=== PATIENT | female | born 1965 | race Caucasian/White ===

== ENCOUNTER → 2020-03-20 11:27 | Outpatient (BNVA) | payer MEDICAID, SELFPAY | PROVIDERS: Visit Provider Specialist | DX: H46.9 Unspecified optic neuritis (principal); Z87.891 Personal history of nicotine dependence | CPT/HCPCS: 99204; 99205 ==

== ENCOUNTER → 2020-10-24 10:58 | Outpatient (BNVA) | payer MEDICAID, SELFPAY | PROVIDERS: Visit Provider Specialist | DX: R26.9 Unspecified abnormalities of gait and mobility (principal); H54.7 Unspecified visual loss; Z87.891 Personal history of nicotine dependence | CPT/HCPCS: 99215 ==